=== PATIENT | female | born 1960 | race Caucasian/White ===

== ENCOUNTER 2025-05-25 17:32 | Inpatient (IN) ==
[2025-05-25] MEDS: SODIUM CHLORIDE 0.9% 500 ML IV SCH (17:51)
--- NOTE | 2025-05-25 17:51 | Emergency Department Note ---
Impression & Plan Closed head injury, Fall, Contusion of face, Contusion of foot, left, Metabolic acidosis ED Provider Note NAME: BEAU SALINAS AGE: 65 SEX: F : 1960 ARRIVES VIA: Ambulance INFORMANT: Patient, ED PROVIDER(S): Darrius Anne DO CHIEF COMPLAINT: Fall HPI: The patient is a 65-year-old female who presented to the emergency department after a fall. She had a fall yesterday evening. She states that she was going upstairs but she is very vague about the incident. She denies having any loss of conscious. The patient denies having any fever. She does complain of headache and neck pain. She also cannot put weight on her left leg. She states that a friend came over to check on her and that is why she called 911. The patient denies any recent alcohol abuse. She denies having any chest pain or difficulty breathing. The patient was not made a trauma activation as she does not take blood thinners. ROS: See above HPI for pertinent positives & negatives. A total of 10 systems reviewed and were otherwise negative. PAST MEDICAL HISTORY: See Below PAST SURGICAL HISTORY: See Below FAMILY HISTORY: See Below SOCIAL HISTORY: See Below HOME MEDICATIONS: See Below ALLERGIES: See Below VITALS: See Below PHYSICAL EXAMINATION: Primary Survey Airway: Intact Breathing: Normal, breath sounds equal bilaterally Circulation: Skin warm, distal pulses 2+, capillary refill less than 2 seconds Disability Pupils: Equal and reactive to light, 2mm, brisk GCS: 15, Motor Function: Moves all extremities. Sensory: No deficits Secondary Survey GEN: The patient is awake and alert. She does appear uncomfortable. HEAD: Tenderness was noted over the occipital scalp. There is no swelling or laceration noted. EYES: Pupils round reactive to light, conjunctiva clear, extraocular movements intact, periorbital ecchymosis was noted around the left eye. There is a small laceration lateral to the left eye. No active bleeding was noted. ENT: Dentition was intact. NECK: No JVD, midline trachea, upper cervical spine tenderness was noted to palpation. s, C-collar in place HEART: Regular rate and rhythm LUNGS: Clear to auscultation bilaterally. CHEST: Chest wall non-tender, no bruising/deformity ABD: there is no tenderness guarding or rigidity elicited. BACK: No step offs or deformities, T-L spine non tender EXT: Skin is warm and dry. There is no significant pedal edema. Ecchymosis was noted over the left foot. There is tenderness over the dorsum of the left foot. Ecchymosis was noted over the right leg as well but there is no tenderness. NEURO: The patient is awake alert and orient x 3. Strength is symmetric. MEDICAL DECISION MAKING: The patient is a 65-year-old female who presented to the emergency department for an evaluation after a fall. The patient fell last evening. She was found by a friend and seemed to be struggling so she came by ambulance. The patient had obvious trauma to the left side of her face. She also had swelling to her left foot. Given the patient's comorbidities I do not feel that she would be a good candidate for outpatient management. There was no obvious traumatic findings on her workup although I am suspicious her left foot could have an occult injury that is not noted on x-ray. She was also found to have metabolic acidosis. Further testing was ordered but I discussed her condition with the on-call [facility] hospitalist. They have agreed to evaluate the patient in the emergency department for further management and disposition. Triage Nursing notes reviewed. Prior medical records reviewed Vital Signs: reviewed and remarkable for elevated blood pressure. Differential diagnosis: Fracture, dislocation, contusion, intra-abdominal, pneumothorax, intrathoracic, intracranial, neurologic, compartment syndrome, rhabdomyolysis, as well as other pathologies. ER treatment provided: See below Diagnostics interpreted by me: ECG: EKG was obtained in the emergency department. My interpretation is normal sinus rhythm at 81 bpm. There is no ectopy. Nonspecific ST abnormalities were appreciated. This was compared to a tracing from November 10, 2020. No changes were noted. Cardiac Monitoring: An order was placed for continuous cardiac monitoring. The monitor shows a rate of 83 bpm with sinus rhythm. Laboratory studies: As stated above and show below. Imaging studies: See below. Radiographic imaging was reviewed by myself Consultation(s): I discussed this case with Dr. Khan [facility] Past Med/Surg History Problem List (Updated 05/25/25 @ 19:40 by Darrius Anne DO) Metabolic acidosis (Acute) Contusion of foot, left (Acute) Contusion of face (Acute) Fall (Acute) Closed head injury (Acute) Social History Smoking Status: Never smoker Preferred Language: Guatemalan Feels Safe at Home: Yes Allergies Allergies Allergy/AdvReac Type Severity Reaction Status Date / Time Penicillins Allergy childhood Unverified 05/25/25 18:59 allergy Home Meds Home Medications Medication Instructions Recorded Confirmed amlodipine 2.5 mg tablet 5 mg PO QAM 05/25/25 05/25/25 cyanocobalamin (vitamin B-12) 1,000 mcg IM MONTHLY 05/25/25 05/25/25 1,000 mcg/mL injection solution folic acid 1 mg tablet 1 mg PO DAILY 05/25/25 05/25/25 losartan 100 mg tablet 100 mg PO QAM 05/25/25 05/25/25 rosuvastatin 5 mg tablet 5 mg PO QAM 05/25/25 05/25/25 sertraline 50 mg tablet 75 mg PO DAILY 05/25/25 05/25/25 Results & Data (ED) Vital Signs Vital Signs - 24 hr 05/25/25 17:45 05/25/25 17:47 05/25/25 17:50 Temperature 36.8 C Temperature Source Oral Pulse Rate 82 83 Respiratory Rate 19 Blood Pressure 176/113 H Blood Pressure Mean 134 Pulse Oximetry 100 100 Oxygen Delivery Method Room Air Room Air Sepsis Recent Fever Within 48 Hours No Sepsis New/Unexplained Change in Mental Status N/A Sepsis Action Taken by Nursing No Action Required Home Medications Current Medication List: was personally reviewed by me Laboratory Data Attestation: I reviewed the patient's lab results. 05/25/25 17:42 05/25/25 17:42 Lab Results 05/25/25 Range/Units 17:42 WBC 6.05 (4.8-10.8) K/ul RBC 3.60 L (4.20-5.40) M/uL Hgb 12.1 (12.0-16.0) g/dL Hct 33.0 L (37.0-47.0) % MCV 91.7 (80.0-100.0) fL MCH 33.6 (25.0-34.0) pg MCHC 36.7 H (32.0-36.0) g/dL RDW Std Deviation 42.6 (36.4-46.3) fL RDW Coeff of Esau 12.8 (11.5-14.5) % Plt Count 253 (130-400) K/uL MPV 9.8 (9.4-12.4) fL Immature Gran % (Auto) 0.5 % Neut % (Auto) 66.8 % Lymph % (Auto) 19.7 % [place] % (Auto) 11.2 % Eos % (Auto) 1.0 % Baso % (Auto) 0.8 % Neut # (Auto) 4.04 (1.40-6.50) K/uL Lymph # (Auto) 1.19 L (1.20-3.40) K/uL [place] # (Auto) 0.68 H (0.11-0.59) K/uL Eos # (Auto) 0.06 (0.00-0.50) K/uL Baso # (Auto) 0.05 (0.00-0.20) K/uL Immature Gran # (Auto) 0.03 (0.01-0.20) K/uL PT 10.2 (9.0-12.0) Seconds INR 1.0 (0.9-1.1) APTT 25 (21-31) Seconds PTT Ratio 0.9 Sodium 134 L (136-145) mmol/L Potassium 3.8 (3.5-5.1) mmol/L Chloride 93 L (98-107) mmol/L Carbon Dioxide 17 L (21-32) mmol/L Anion Gap 24 H (3-11) BUN 9 (6-23) mg/dl Creatinine 0.68 (0.6-1.2) mg/dl Est Cr Clr Drug Dosing 85.4 ml/min eGFR 97.80 BUN/Creatinine Ratio 13.2 (10-20) Glucose 76 (70-99(Fasting)) mg/dl Calcium 9.4 (8.6-10.3) mg/dl Total Bilirubin 1.1 H (0.2-1.0) mg/dl AST 44 H (13-39) U/L ALT 32 (7-52) U/L Alkaline Phosphatase 72 (34-104) U/L Total Creatine Kinase 237 H (26-192) U/L Troponin I High Sens 5.8 (0-14) pg/ml Total Protein 7.9 (6.0-8.3) gm/dl Albumin 4.8 (3.4-5.0) gm/dl Globulin 3.1 (2.5-4.0) gm/dl Albumin/Globulin Ratio 1.5 (0.9-2) Lipase 14 (11-82) U/L Ethyl Alcohol mg/dL < 10.0 (<10.0) mg/dl Administered Medications Discontinued Medications Diphtheria/Pertussis/Tetanus Vacc (Diphther/Tetan/Pertus Vaccine (Tdap, Adol/Adult) 0.5ml) 0.5 ml IM .ONCE ONE Stop: 05/25/25 17:47 Last Admin: 05/25/25 19:10 Dose: 0.5 ml Documented By: adolfor Sodium Chloride (Nss) 500 mls @ 999 mls/hr IV .Q31M JESSY Stop: 05/25/25 18:30 Last Admin: 05/25/25 17:51 Dose: 999 mls/hr Documented By: ALYSE Cefazolin Sodium (Ancef 1000mg) 1,000 mg in 7.5 mls @ 2.5 mls/min IV NOW STA Stop: 05/25/25 17:48 Last Admin: 05/25/25 19:09 Dose: 2.5 mls/min Documented By: adolfor Morphine Sulfate (Morphine Sulfate 4 Mg/Ml 1 Ml Carp\Vial) 4 mg IV NOW STA Stop: 05/25/25 17:47 Last Admin: 05/25/25 17:57 Dose: 4 mg Documented By: TEMITOPE Ondansetron HCl (Ondansetron Inj 2 Mg/Ml 2 Ml Vial) 4 mg IV NOW STA Stop: 05/25/25 17:47 Last Admin: 05/25/25 17:56 Dose: 4 mg Documented By: TEMITOPE Imaging Data Attestation: I personally reviewed and interpreted this imaging study as follows: My Impression: 1 view chest x-ray was obtained in the emergency department. My interpretation is no free air or definite infiltrate, final report below. Radiologist's Impression: Chest X-Ray 05/25/25 17:46 EXAM: X-ray chest one-view portable CLINICAL HISTORY: Fall PRIORS: 11/10/2020 TECHNIQUE: Frontal view chest FINDINGS: The chest is well-expanded. No airspace consolidation, effusion or congestive changes. Heart size is normal. No pneumothorax. Trachea is patent. Osseous structures demonstrate no acute abnormality. No radiopaque foreign body. IMPRESSION: No plain film evidence of an acute cardiopulmonary process. Electronically signed by Lorrie Tolbert 05-25-2025 6:45 PM Foot X-Ray 05/25/25 17:46 EXAMINATION: X-ray foot left minimum 3 view routine CLINICAL HISTORY: Fall PRIORS: None TECHNIQUE: 3 views left foot FINDINGS: Osseous demineralization noted. Alignment maintained. A moderate to large degree of soft tissue swelling surrounding the middle tarsals on the lateral view. No displaced fracture or dislocation. Advanced degenerative change of the great toe, MTP joint with medially situated osteophytes. No ankle joint effusion. Calcaneus is normal. PRESSION: Moderate soft tissue swelling of the foot with degenerative change of the great toe and no plain film evidence of an acute osseous abnormality. Follow-up radiograph of the foot could be considered if no radiographic occult fracture is of clinical concern, given the degree of soft tissue swelling. ACT 112: Positive. There are findings on this examination that require communication between the performing entity and the patient following Patient Test Result Information Act ([place] ACT 112) guidelines. Electronically signed by Lorrie Tolbert 05-25-2025 7:17 PM Tibia/Fibula X-Ray 05/25/25 17:46 EXAMINATION: X-ray tibia-fibula left 2 view CLINICAL HISTORY: Fall PRIORS: None TECHNIQUE: 2 view FINDINGS: Mild osseous demineralization noted. No acute displaced fracture or dislocation. No soft tissue swelling. No radiopaque foreign body. IMPRESSION: No plain film evidence of an acute osseous abnormality. Electronically signed by Lorrie Tolbert 05-25-2025 7:14 PM Abdomen/Pelvis CT 05/25/25 17:47 EXAMINATION: Abdomen and pelvis CT with CLINICAL HISTORY: Fell last night down 2 steps PRIORS: None TECHNIQUE: Contiguous axial images were obtained through the abdomen and pelvis with the use of intravenous contrast. Sagittal and coronal reformations are supplied. FINDINGS: Lung bases unremarkable. Fatty infiltration of the liver noted. Small round low-attenuation lesions in the liver likely representing cyst. No solid organ laceration or pericapsular hematoma. Gallbladder mildly distended. The portal vein, pancreas, spleen, under distended stomach, adrenals, aorta and IVC are morphologically unremarkable. Kidneys enhance symmetrically. No bowel wall hematoma or hemoperitoneum. Small bilateral inguinal hernias noted with fat as contents. Urinary bladder distends normally. No free fluid in the abdomen or pelvis. No dilated loops of bowel. Partially calcified atrophic uterus, likely fibroid. Moderate amount of formed stool in the colon. No pericolonic inflammatory change. Moderate osseous demineralization noted. Straightening of the lumbar spine noted. No high-grade compression fracture of the lumbar vertebral bodies. No acute displaced fracture or dislocation. IMPRESSION: 1. No CT evidence of an acute or traumatic abnormality. 2. Straightening of the lumbar spine may suggest muscle spasm. 3. Fatty infiltration of the liver Electronically signed by Lorrie Tolbert 05-25-2025 7:[address] 05/25/25 17:47 EXAM: CT cervical spine CLINICAL HISTORY: Fall last night, fell down 2 steps, neck pain left eye pain head pain TECHNIQUE: Contiguous axial images were obtained through the cervical spine without the use of intravenous contrast. Sagittal and coronal reformations are supplied. PRIORS: 02/24/2025 FINDINGS: Mild osseous demineralization noted. Lordotic straightening is noted. No acute cervical spine fracture or facet dislocation. Moderate to advanced degenerative change at C3-C4 through C7-T1 with near-total loss of intervertebral disc height, anterior bridging osteophytes and moderate uncovertebral hypertrophic changes, unchanged. No facet dislocation. Mild to moderate diffuse degenerative change throughout the facet joints. No prevertebral soft tissue swelling. Visualized trachea is patent. IMPRESSION: Lordotic straightening with advanced degenerative change throughout the lumbar spine and no acute fracture or dislocation. Electronically signed by Lorrie Tolbert 05-25-2025 7:[address] 05/25/25 17:47 EXAMINATION: Chest CT with CLINICAL HISTORY: Fall down 2 steps COMPARISON: Chest radiograph today TECHNIQUE: Contiguous axial images were obtained through the chest with the use of intravenous contrast. Sagittal and coronal reformations are supplied. FINDINGS: Chest is well-expanded. No pneumothorax, pulmonary contusion or pleural effusion. No bronchiectasis or mucous plugging. Trachea and mainstem bronchi are patent. Thyroid size is normal. Trachea and mainstem bronchi patent. Heart size within normal limits. No pericardial effusion. No adenopathy in the chest. Mild atherosclerotic disease of the coronary arteries. Fatty infiltration of the liver noted. Low-attenuation lesions in the liver may represent cysts. Mild osseous demineralization. No rib fracture IMPRESSION: No CT evidence of an acute or traumatic abnormality in the chest. Electronically signed by Lorrie Tolbert 05-25-2025 7:[address] 05/25/25 17:47 EXAMINATION: CT sinus without. PROCEDURE: Contiguous axial images were obtained through the paranasal sinuses without the use of intravenous contrast in bone windows. Sagittal and coronal reformations are supplied. COMPARISON: None INDICATION: Fall down 2 steps left eye pain FINDINGS: Mild osseous demineralization noted. No displaced fracture or dislocation. Postsurgical change of the sinuses with moderate mucosal moderate mucosal thickening of the maxillary sinuses noted. Remainder of paranasal sinuses and mastoid air cells well-pneumatized. The globes are bilaterally symmetric chronic appearing lucencies in the styloid processes. Postsurgical change of the nasal turbinates. Chronic appearing nasal bone fracture/lucency noted, image 40, series 901. No soft tissue swelling. Mild left periorbital inflammatory change. IMPRESSION: 1. Mild left periorbital soft tissue swelling representing trauma 2. Thickening of the maxillary sinuses compatible with chronic sinusitis. Electronically signed by Lorrie Tolbert 05-25-2025 7:[address] 05/25/25 17:47 EXAMINATION: Head CT without CLINICAL HISTORY: Fall last night fell 2 steps PRIORS: 02/24/2025 TECHNIQUE: Contiguous axial images were obtained through the head without the use of intravenous contrast. Sagittal and coronal reformations are supplied. FINDINGS: Appropriate parenchymal volume is noted. Scattered heterogeneous opacity present in the deep white matter likely representing small vessel occlusive disease. Jalloh-white differentiation is preserved. No edema or midline shift. No intra-axial or extra-axial hemorrhage. Ventricles are normal in size and configuration. Brainstem and cerebellum have a normal appearance. Calvarium unremarkable. Paranasal sinuses and mastoid air cells are well-pneumatized. Globes are intact. No retrobulbar abnormality. IMPRESSION: No CT evidence of an acute intracranial abnormality. If clinically appropriate, brain MRI could be obtained as appropriate. Electronically signed by Lorrie Tolbert 05-25-2025 7:21 PM Discharge Plan Visit Data Chief Complaint: Fall Stated Complaint: Fall yesterday, NOT on thinners ED Provider: Darrius Anne Discharge Problem: Closed head injury, Fall, Contusion of face, Contusion of foot, left, Metabolic acidosis Patient Disposition: Being Evaluated by Hospitalist Condition: Fair Forms Stand Alone Forms: My [facility] Prescriptions Prescriptions: No Action amlodipine 2.5 mg tablet 5 mg PO QAM cyanocobalamin (vitamin B-12) 1,000 mcg/mL solution 1,000 mcg IM MONTHLY folic acid 1 mg tablet 1 mg PO DAILY losartan 100 mg tablet 100 mg PO QAM sertraline 50 mg tablet 75 mg PO DAILY rosuvastatin 5 mg tablet 5 mg PO QAM Referrals Referrals: Nhi Paz MD [Primary Care Provider] -
[2025-05-25] MEDS: ONDANSETRON INJ 2 MG/ML 2 ML VIAL IV STA (17:56)
[2025-05-25] MEDS: MoRPHine SULFATE 4 MG/ML 1 ML CARP\\VIAL IV STA (17:57)
[2025-05-25 18:04] LABS: Hematocrit (blood only) 33.0 % (37.0-47.0); Hemoglobin 12.1 g/dL (12.0-16.0); Immature Granulocytes # (auto) 0.03 K/uL (0.01-0.20); Immature Granulocytes % (auto) 0.5 %; Mean Corpuscular Hemoglobin 33.6 pg (25.0-34.0); Mean Corpuscular Volume 91.7 fL (80.0-100.0); Platelet Count 253 K/uL (130-400); RDW Standard Deviation 42.6 fL (36.4-46.3); Red Blood Count 3.60 M/uL (4.20-5.40); White Blood Count 6.05 K/ul (4.8-10.8)
[2025-05-25 18:22] LABS: Alanine Aminotransferase 32.0 U/L (7-52); Albumin Globulin Ratio 1.5 (0.9-2); Albumin Level 4.8 gm/dl (3.4-5.0); Alkaline Phosphatase 72.0 U/L (34-104); Anion Gap 24.0 (3-11); Bilirubin,Total 1.1 mg/dl (0.2-1.0); Blood Urea Nitrogen 9.0 mg/dl (6-23); Calcium 9.4 mg/dl (8.6-10.3); Carbon Dioxide 17.0 mmol/L (21-32); Chloride 93.0 mmol/L (98-107); Creatine Kinase 237.0 U/L (26-192); Creatinine Clr Calc Pharmacy 85.4 ml/min; Globulin 3.1 gm/dl (2.5-4.0); Glucose 76.0 mg/dl (70-99(Fasting)); Lipase 14.0 U/L (11-82); Potassium 3.8 mmol/L (3.5-5.1); Sodium 134.0 mmol/L (136-145); Total Protein 7.9 gm/dl (6.0-8.3)
[2025-05-25 18:41] LABS: INR 1.0 (0.9-1.1); Partial Thromboplastin Time 25 Seconds (21-31); Prothrombin Time 10.2 Seconds (9.0-12.0)
--- NOTE | 2025-05-25 18:49 | XRay Report ---
EXAM: X-ray chest one-view portable CLINICAL HISTORY: Fall PRIORS: 11/10/2020 TECHNIQUE: Frontal view chest FINDINGS: The chest is well-expanded. No airspace consolidation, effusion or congestive changes. Heart size is normal. No pneumothorax. Trachea is patent. Osseous structures demonstrate no acute abnormality. No radiopaque foreign body. IMPRESSION: No plain film evidence of an acute cardiopulmonary process. Electronically signed by Lorrie Tolbert 05-25-2025 6:45 PM
[2025-05-25] MEDS: DIPHTHER/TETAN/PERTUS Vaccine (Tdap, Adol/Adult) 0.5mL IM ONE (19:10)
--- NOTE | 2025-05-25 19:19 | XRay Report ---
EXAMINATION: X-ray tibia-fibula left 2 view CLINICAL HISTORY: Fall PRIORS: None TECHNIQUE: 2 view FINDINGS: Mild osseous demineralization noted. No acute displaced fracture or dislocation. No soft tissue swelling. No radiopaque foreign body. IMPRESSION: No plain film evidence of an acute osseous abnormality. Electronically signed by Lorrie Tolbert 05-25-2025 7:14 PM
--- NOTE | 2025-05-25 19:19 | XRay Report ---
EXAMINATION: X-ray foot left minimum 3 view routine CLINICAL HISTORY: Fall PRIORS: None TECHNIQUE: 3 views left foot FINDINGS: Osseous demineralization noted. Alignment maintained. A moderate to large degree of soft tissue swelling surrounding the middle tarsals on the lateral view. No displaced fracture or dislocation. Advanced degenerative change of the great toe, MTP joint with medially situated osteophytes. No ankle joint effusion. Calcaneus is normal. PRESSION: Moderate soft tissue swelling of the foot with degenerative change of the great toe and no plain film evidence of an acute osseous abnormality. Follow-up radiograph of the foot could be considered if no radiographic occult fracture is of clinical concern, given the degree of soft tissue swelling. ACT 112: Positive. There are findings on this examination that require communication between the performing entity and the patient following Patient Test Result Information Act ([place] ACT 112) guidelines. Electronically signed by Lorrie Tolbert 05-25-2025 7:17 PM
--- NOTE | 2025-05-25 19:20 | CT Scan Report ---
EXAM: CT cervical spine CLINICAL HISTORY: Fall last night, fell down 2 steps, neck pain left eye pain head pain TECHNIQUE: Contiguous axial images were obtained through the cervical spine without the use of intravenous contrast. Sagittal and coronal reformations are supplied. PRIORS: 02/24/2025 FINDINGS: Mild osseous demineralization noted. Lordotic straightening is noted. No acute cervical spine fracture or facet dislocation. Moderate to advanced degenerative change at C3-C4 through C7-T1 with near-total loss of intervertebral disc height, anterior bridging osteophytes and moderate uncovertebral hypertrophic changes, unchanged. No facet dislocation. Mild to moderate diffuse degenerative change throughout the facet joints. No prevertebral soft tissue swelling. Visualized trachea is patent. IMPRESSION: Lordotic straightening with advanced degenerative change throughout the lumbar spine and no acute fracture or dislocation. Electronically signed by Lorrie Tolbert 05-25-2025 7:19 PM
--- NOTE | 2025-05-25 19:22 | CT Scan Report ---
EXAMINATION: Head CT without CLINICAL HISTORY: Fall last night fell 2 steps PRIORS: 02/24/2025 TECHNIQUE: Contiguous axial images were obtained through the head without the use of intravenous contrast. Sagittal and coronal reformations are supplied. FINDINGS: Appropriate parenchymal volume is noted. Scattered heterogeneous opacity present in the deep white matter likely representing small vessel occlusive disease. Jalloh-white differentiation is preserved. No edema or midline shift. No intra-axial or extra-axial hemorrhage. Ventricles are normal in size and configuration. Brainstem and cerebellum have a normal appearance. Calvarium unremarkable. Paranasal sinuses and mastoid air cells are well-pneumatized. Globes are intact. No retrobulbar abnormality. IMPRESSION: No CT evidence of an acute intracranial abnormality. If clinically appropriate, brain MRI could be obtained as appropriate. Electronically signed by Lorrie Tolbert 05-25-2025 7:21 PM
--- NOTE | 2025-05-25 19:25 | CT Scan Report ---
EXAMINATION: Chest CT with CLINICAL HISTORY: Fall down 2 steps COMPARISON: Chest radiograph today TECHNIQUE: Contiguous axial images were obtained through the chest with the use of intravenous contrast. Sagittal and coronal reformations are supplied. FINDINGS: Chest is well-expanded. No pneumothorax, pulmonary contusion or pleural effusion. No bronchiectasis or mucous plugging. Trachea and mainstem bronchi are patent. Thyroid size is normal. Trachea and mainstem bronchi patent. Heart size within normal limits. No pericardial effusion. No adenopathy in the chest. Mild atherosclerotic disease of the coronary arteries. Fatty infiltration of the liver noted. Low-attenuation lesions in the liver may represent cysts. Mild osseous demineralization. No rib fracture IMPRESSION: No CT evidence of an acute or traumatic abnormality in the chest. Electronically signed by Lorrie Tolbert 05-25-2025 7:24 PM
--- NOTE | 2025-05-25 19:29 | CT Scan Report ---
EXAMINATION: CT sinus without. PROCEDURE: Contiguous axial images were obtained through the paranasal sinuses without the use of intravenous contrast in bone windows. Sagittal and coronal reformations are supplied. COMPARISON: None INDICATION: Fall down 2 steps left eye pain FINDINGS: Mild osseous demineralization noted. No displaced fracture or dislocation. Postsurgical change of the sinuses with moderate mucosal moderate mucosal thickening of the maxillary sinuses noted. Remainder of paranasal sinuses and mastoid air cells well-pneumatized. The globes are bilaterally symmetric chronic appearing lucencies in the styloid processes. Postsurgical change of the nasal turbinates. Chronic appearing nasal bone fracture/lucency noted, image 40, series 901. No soft tissue swelling. Mild left periorbital inflammatory change. IMPRESSION: 1. Mild left periorbital soft tissue swelling representing trauma 2. Thickening of the maxillary sinuses compatible with chronic sinusitis. Electronically signed by Lorrie Tolbert 05-25-2025 7:28 PM
--- NOTE | 2025-05-25 19:32 | CT Scan Report ---
EXAMINATION: Abdomen and pelvis CT with CLINICAL HISTORY: Fell last night down 2 steps PRIORS: None TECHNIQUE: Contiguous axial images were obtained through the abdomen and pelvis with the use of intravenous contrast. Sagittal and coronal reformations are supplied. FINDINGS: Lung bases unremarkable. Fatty infiltration of the liver noted. Small round low-attenuation lesions in the liver likely representing cyst. No solid organ laceration or pericapsular hematoma. Gallbladder mildly distended. The portal vein, pancreas, spleen, under distended stomach, adrenals, aorta and IVC are morphologically unremarkable. Kidneys enhance symmetrically. No bowel wall hematoma or hemoperitoneum. Small bilateral inguinal hernias noted with fat as contents. Urinary bladder distends normally. No free fluid in the abdomen or pelvis. No dilated loops of bowel. Partially calcified atrophic uterus, likely fibroid. Moderate amount of formed stool in the colon. No pericolonic inflammatory change. Moderate osseous demineralization noted. Straightening of the lumbar spine noted. No high-grade compression fracture of the lumbar vertebral bodies. No acute displaced fracture or dislocation. IMPRESSION: 1. No CT evidence of an acute or traumatic abnormality. 2. Straightening of the lumbar spine may suggest muscle spasm. 3. Fatty infiltration of the liver Electronically signed by Lorrie Tolbert 05-25-2025 7:32 PM
[2025-05-25] MEDS: LACTATED RINGER'S 1,000 ML IV ONE (20:06)
[2025-05-25] MEDS: HYDROmorphone INJ 0.5 MG/0.5 ML SYR IV PRN (20:06)
[2025-05-25 20:33] LABS: Appearance Urine Clear (Clear); Glucose Urine UA Negative (Negative)
--- NOTE | 2025-05-25 20:41 | History & Physical Report ---
Date of Service May 25, 2025 Assessment & Plan (1) Cerebral concussion: Plan: Assessment and plan below following discussion of case with ED provider and reviewing patient history/pertinent normal/abnormal diagnostic test results. Cerebral concussion Prior history of concussion injury when patient was residing in [place] Ambulatory dysfunction hypertension, elevated secondary discomfort and missed home medications. pineal gland cyst as per records, not present on follow-up brain MRI from 2010 ADHD, stable off maintenance medications Traumatic left foot swelling, rule out occult fractures given excruciating pain despite negative plain x-ray OBS Admit to med/tele [facility] neurochecks Neurology consult Re: Cerebral concussion Facilitate home BP meds CT left foot PT OT eval prior to discharge DVT prophylaxis. SCDs Re: Recent head trauma Full code Text document was generated using [employer] voice recognition software. It may contain grammatical or spelling errors. Kindly contact undersigned for clarification of any documentation item in question. History of Present Illness Chief Complaint: Fall, LOC Primary Care Provider: Nhi Paz MD History obtained from patient and records. Medical history significant for hypertension, postconcussion syndrome, pineal gland cyst as per records, ADHD, mood disorder. Last ER visit February, for a fall in the setting of alcohol intoxication resulting in left hand bruising. Patient discharged home. Outpatient x-rays eventually showed phalangeal fractures of the left hand. No operative management as per [facility]. Patient missed a step while going up a flight of stairs at her home today. Balance has been off since having COVID few years back as per patient. Last EtOH intake was weeks ago as per patient. Subsequent head trauma resulting in LOC. Patient thinks he may have been just out for a few minutes. Patient woke up with left eye pain and extreme left foot pain. Vision on the left eye little blurry. Denies chest pain, SOB. Patient not able to take BP meds today. Patient brought to ER by EMS. SBP 170s upon arrival at the ER. Medical History as above Surgical History : Breast lesion excision, dental surgery, right wrist reconstructive surgery Family History : Breast cancer, colon cancer, lymphoma, blood clot Personal/Social history : Non-smoker, occasional EtOH intake, retired from [employer] work Allergies Allergy/AdvReac Type Severity Reaction Status Date / Time Penicillins Allergy childhood Unverified 05/25/25 18:59 allergy Home Medications Medication Instructions Recorded Confirmed Type amlodipine 2.5 mg tablet 5 mg PO QAM 05/25/25 05/25/25 History cyanocobalamin (vitamin B-12) 1,000 mcg IM MONTHLY 05/25/25 05/25/25 History 1,000 mcg/mL injection solution folic acid 1 mg tablet 1 mg PO DAILY 05/25/25 05/25/25 History losartan 100 mg tablet 100 mg PO QAM 05/25/25 05/25/25 History rosuvastatin 5 mg tablet 5 mg PO QAM 05/25/25 05/25/25 History sertraline 50 mg tablet 75 mg PO DAILY 05/25/25 05/25/25 History Past Med/Surg History Problem List (Updated 05/25/25 @ 23:40 by Jose J Khan MD) Cerebral concussion Metabolic acidosis (Acute) Contusion of foot, left (Acute) Contusion of face (Acute) Fall (Acute) Closed head injury (Acute) Social History Smoking Status: Never smoker Hx Alcohol Use: Yes Hx Substance Use: No Preferred Language: Romanian Communication Ability: Effective 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 Current Living Situation: Alone Current Living Situation Comment: alone with cats and rabbits Other Information That Helps Us Care for You: No Feels Safe at Home: Yes Safety Concerns: Feels Safe At This Time Assistive Devices: Glasses Review of Systems Review of Systems: As per HPI, all other systems reviewed and negative Physical Exam Physical Exam: GENERAL: Comfortable, slightly anxious, no respiratory distress SKIN: Normal color, warm HEENT: Left periorbital ecchymosis, no ptosis, dry buccal mucosa NECK : Supple, no tenderness CHEST : CTA, no tenderness HEART : RRR, no obvious murmurs ABDOMEN: Some distention, nontender EXTREMITIES : Tender left foot swelling, palpable pulses, no other conspicuous deformities noted NEUROLOGIC : Coherent, no EOM entrapment, no facial asymmetry, gait and stance not assessed Results & Data Results & Data Vital Signs (Past 12 Hours) Vital Signs Temp Pulse Pulse Resp BP BP Pulse Ox 05/25/25 20:14 72 15 148/91 H 95 05/25/25 17:50 83 05/25/25 17:47 100 05/25/25 17:45 36.8 C 82 19 176/113 H 100 O2 Del Method 05/25/25 20:14 Room Air 05/25/25 17:50 05/25/25 17:47 Room Air 05/25/25 17:45 Room Air Laboratory Results Laboratory Results WBC 6.05 K/ul (4.8-10.8) 05/25/25 17:42 RBC 3.60 M/uL (4.20-5.40) L 05/25/25 17:42 Hgb 12.1 g/dL (12.0-16.0) 05/25/25 17:42 Hct 33.0 % (37.0-47.0) L 05/25/25 17:42 MCV 91.7 fL (80.0-100.0) 05/25/25 17:42 MCH 33.6 pg (25.0-34.0) 05/25/25 17:42 MCHC 36.7 g/dL (32.0-36.0) H 05/25/25 17:42 RDW Std Deviation 42.6 fL (36.4-46.3) 05/25/25 17:42 RDW Coeff of Esau 12.8 % (11.5-14.5) 05/25/25 17:42 Plt Count 253 K/uL (130-400) 05/25/25 17:42 MPV 9.8 fL (9.4-12.4) 05/25/25 17:42 Immature Gran % (Auto) 0.5 % 05/25/25 17:42 Neut % (Auto) 66.8 % 05/25/25 17:42 Lymph % (Auto) 19.7 % 05/25/25 17:42 [place] % (Auto) 11.2 % 05/25/25 17:42 Eos % (Auto) 1.0 % 05/25/25 17:42 Baso % (Auto) 0.8 % 05/25/25 17:42 Neut # (Auto) 4.04 K/uL (1.40-6.50) 05/25/25 17:42 Lymph # (Auto) 1.19 K/uL (1.20-3.40) L 05/25/25 17:42 [place] # (Auto) 0.68 K/uL (0.11-0.59) H 05/25/25 17:42 Eos # (Auto) 0.06 K/uL (0.00-0.50) 05/25/25 17:42 Baso # (Auto) 0.05 K/uL (0.00-0.20) 05/25/25 17:42 Immature Gran # (Auto) 0.03 K/uL (0.01-0.20) 05/25/25 17:42 PT 10.2 Seconds (9.0-12.0) 05/25/25 17:42 INR 1.0 (0.9-1.1) 05/25/25 17:42 APTT 25 Seconds (21-31) 05/25/25 17:42 PTT Ratio 0.9 05/25/25 17:42 Sodium 134 mmol/L (136-145) L 05/25/25 17:42 Potassium 3.8 mmol/L (3.5-5.1) 05/25/25 17:42 Chloride 93 mmol/L (98-107) L 05/25/25 17:42 Carbon Dioxide 17 mmol/L (21-32) L 05/25/25 17:42 Anion Gap 24 (3-11) H 05/25/25 17:42 BUN 9 mg/dl (6-23) 05/25/25 17:42 Creatinine 0.68 mg/dl (0.6-1.2) 05/25/25 17:42 Est Cr Clr Drug Dosing 85.4 ml/min 05/25/25 17:42 eGFR 97.80 05/25/25 17:42 BUN/Creatinine Ratio 13.2 (10-20) 05/25/25 17:42 Glucose 76 mg/dl (70-99(Fasting)) 05/25/25 17:42 Calcium 9.4 mg/dl (8.6-10.3) 05/25/25 17:42 Total Bilirubin 1.1 mg/dl (0.2-1.0) H 05/25/25 17:42 AST 44 U/L (13-39) H 05/25/25 17:42 ALT 32 U/L (7-52) 05/25/25 17:42 Alkaline Phosphatase 72 U/L (34-104) 05/25/25 17:42 Total Creatine Kinase 237 U/L (26-192) H 05/25/25 17:42 Troponin I High Sens 5.8 pg/ml (0-14) 05/25/25 17:42 Total Protein 7.9 gm/dl (6.0-8.3) 05/25/25 17:42 Albumin 4.8 gm/dl (3.4-5.0) 05/25/25 17:42 Globulin 3.1 gm/dl (2.5-4.0) 05/25/25 17:42 Albumin/Globulin Ratio 1.5 (0.9-2) 05/25/25 17:42 Lipase 14 U/L (11-82) 05/25/25 17:42 Urine Color Yellow 05/25/25 20:15 Urine Appearance Clear (Clear) 05/25/25 20:15 Urine pH 6.0 (4.5-7.5) 05/25/25 20:15 Ur Specific [place] 1.026 (1.000-1.030) 05/25/25 20:15 Urine Protein Negative (Negative) 05/25/25 20:15 Urine Glucose (UA) Negative (Negative) 05/25/25 20:15 Urine Ketones 4+ (Negative) H 05/25/25 20:15 Urine Blood Negative (Negative) 05/25/25 20:15 Urine Nitrite Negative (Negative) 05/25/25 20:15 Urine Bilirubin Negative (Negative) 05/25/25 20:15 Urine Urobilinogen Negative (Negative) 05/25/25 20:15 Ur Leukocyte Esterase Negative (Negative) 05/25/25 20:15 Urine Comment 05/25/25 20:15 Ethyl Alcohol mg/dL < 10.0 mg/dl (<10.0) 05/25/25 17:42 Impressions Chest X-Ray 05/25/25 17:46 EXAM: X-ray chest one-view portable CLINICAL HISTORY: Fall PRIORS: 11/10/2020 TECHNIQUE: Frontal view chest FINDINGS: The chest is well-expanded. No airspace consolidation, effusion or congestive changes. Heart size is normal. No pneumothorax. Trachea is patent. Osseous structures demonstrate no acute abnormality. No radiopaque foreign body. IMPRESSION: No plain film evidence of an acute cardiopulmonary process. Electronically signed by Lorrie Tolbert 05-25-2025 6:45 PM Foot X-Ray 05/25/25 17:46 EXAMINATION: X-ray foot left minimum 3 view routine CLINICAL HISTORY: Fall PRIORS: None TECHNIQUE: 3 views left foot FINDINGS: Osseous demineralization noted. Alignment maintained. A moderate to large degree of soft tissue swelling surrounding the middle tarsals on the lateral view. No displaced fracture or dislocation. Advanced degenerative change of the great toe, MTP joint with medially situated osteophytes. No ankle joint effusion. Calcaneus is normal. PRESSION: Moderate soft tissue swelling of the foot with degenerative change of the great toe and no plain film evidence of an acute osseous abnormality. Follow-up radiograph of the foot could be considered if no radiographic occult fracture is of clinical concern, given the degree of soft tissue swelling. ACT 112: Positive. There are findings on this examination that require communication between the performing entity and the patient following Patient Test Result Information Act ([place] ACT 112) guidelines. Electronically signed by Lorrie Tolbert 05-25-2025 7:17 PM Tibia/Fibula X-Ray 05/25/25 17:46 EXAMINATION: X-ray tibia-fibula left 2 view CLINICAL HISTORY: Fall PRIORS: None TECHNIQUE: 2 view FINDINGS: Mild osseous demineralization noted. No acute displaced fracture or dislocation. No soft tissue swelling. No radiopaque foreign body. IMPRESSION: No plain film evidence of an acute osseous abnormality. Electronically signed by Lorrie Tolbert 05-25-2025 7:14 PM Abdomen/Pelvis CT 05/25/25 17:47 EXAMINATION: Abdomen and pelvis CT with CLINICAL HISTORY: Fell last night down 2 steps PRIORS: None TECHNIQUE: Contiguous axial images were obtained through the abdomen and pelvis with the use of intravenous contrast. Sagittal and coronal reformations are supplied. FINDINGS: Lung bases unremarkable. Fatty infiltration of the liver noted. Small round low-attenuation lesions in the liver likely representing cyst. No solid organ laceration or pericapsular hematoma. Gallbladder mildly distended. The portal vein, pancreas, spleen, under distended stomach, adrenals, aorta and IVC are morphologically unremarkable. Kidneys enhance symmetrically. No bowel wall hematoma or hemoperitoneum. Small bilateral inguinal hernias noted with fat as contents. Urinary bladder distends normally. No free fluid in the abdomen or pelvis. No dilated loops of bowel. Partially calcified atrophic uterus, likely fibroid. Moderate amount of formed stool in the colon. No pericolonic inflammatory change. Moderate osseous demineralization noted. Straightening of the lumbar spine noted. No high-grade compression fracture of the lumbar vertebral bodies. No acute displaced fracture or dislocation. IMPRESSION: 1. No CT evidence of an acute or traumatic abnormality. 2. Straightening of the lumbar spine may suggest muscle spasm. 3. Fatty infiltration of the liver Electronically signed by Lorrie Tolbert 05-25-2025 7:[address] 05/25/25 17:47 EXAM: CT cervical spine CLINICAL HISTORY: Fall last night, fell down 2 steps, neck pain left eye pain head pain TECHNIQUE: Contiguous axial images were obtained through the cervical spine without the use of intravenous contrast. Sagittal and coronal reformations are supplied. PRIORS: 02/24/2025 FINDINGS: Mild osseous demineralization noted. Lordotic straightening is noted. No acute cervical spine fracture or facet dislocation. Moderate to advanced degenerative change at C3-C4 through C7-T1 with near-total loss of intervertebral disc height, anterior bridging osteophytes and moderate uncovertebral hypertrophic changes, unchanged. No facet dislocation. Mild to moderate diffuse degenerative change throughout the facet joints. No prevertebral soft tissue swelling. Visualized trachea is patent. IMPRESSION: Lordotic straightening with advanced degenerative change throughout the lumbar spine and no acute fracture or dislocation. Electronically signed by Lorrie Tolbert 05-25-2025 7:[address] 05/25/25 17:47 EXAMINATION: Chest CT with CLINICAL HISTORY: Fall down 2 steps COMPARISON: Chest radiograph today TECHNIQUE: Contiguous axial images were obtained through the chest with the use of intravenous contrast. Sagittal and coronal reformations are supplied. FINDINGS: Chest is well-expanded. No pneumothorax, pulmonary contusion or pleural effusion. No bronchiectasis or mucous plugging. Trachea and mainstem bronchi are patent. Thyroid size is normal. Trachea and mainstem bronchi patent. Heart size within normal limits. No pericardial effusion. No adenopathy in the chest. Mild atherosclerotic disease of the coronary arteries. Fatty infiltration of the liver noted. Low-attenuation lesions in the liver may represent cysts. Mild osseous demineralization. No rib fracture IMPRESSION: No CT evidence of an acute or traumatic abnormality in the chest. Electronically signed by Lorrie Tolbert 05-25-2025 7:[address] 05/25/25 17:47 EXAMINATION: CT sinus without. PROCEDURE: Contiguous axial images were obtained through the paranasal sinuses without the use of intravenous contrast in bone windows. Sagittal and coronal reformations are supplied. COMPARISON: None INDICATION: Fall down 2 steps left eye pain FINDINGS: Mild osseous demineralization noted. No displaced fracture or dislocation. Postsurgical change of the sinuses with moderate mucosal moderate mucosal thickening of the maxillary sinuses noted. Remainder of paranasal sinuses and mastoid air cells well-pneumatized. The globes are bilaterally symmetric chronic appearing lucencies in the styloid processes. Postsurgical change of the nasal turbinates. Chronic appearing nasal bone fracture/lucency noted, image 40, series 901. No soft tissue swelling. Mild left periorbital inflammatory change. IMPRESSION: 1. Mild left periorbital soft tissue swelling representing trauma 2. Thickening of the maxillary sinuses compatible with chronic sinusitis. Electronically signed by Lorrie Tolbert 05-25-2025 7:[address] 05/25/25 17:47 EXAMINATION: Head CT without CLINICAL HISTORY: Fall last night fell 2 steps PRIORS: 02/24/2025 TECHNIQUE: Contiguous axial images were obtained through the head without the use of intravenous contrast. Sagittal and coronal reformations are supplied. FINDINGS: Appropriate parenchymal volume is noted. Scattered heterogeneous opacity present in the deep white matter likely representing small vessel occlusive disease. Jalloh-white differentiation is preserved. No edema or midline shift. No intra-axial or extra-axial hemorrhage. Ventricles are normal in size and configuration. Brainstem and cerebellum have a normal appearance. Calvarium unremarkable. Paranasal sinuses and mastoid air cells are well-pneumatized. Globes are intact. No retrobulbar abnormality. IMPRESSION: No CT evidence of an acute intracranial abnormality. If clinically appropriate, brain MRI could be obtained as appropriate. Electronically signed by Lorrie Tolbert 05-25-2025 7:21 PM Diagnostic Findings EKG as per my interpretation :Rate 80, NSR, normal axis, T wave abnormalities septal leads
[2025-05-25] MEDS ORDERED: LORazepam 0.5 MG TAB PO PRN (20:44)
[2025-05-25 21:25] LABS: Base Excess VBG -4.9 mEq/L; HCO3 VBG 20 mmol/L; Oxygen Saturation VBG 79.4 %; PCO2 VBG 35 mmHg (38-50); PO2 VBG 49 mmHg; pH VBG 7.36 (7.36-7.41)
[2025-05-25] MEDS: SODIUM CHLORIDE 0.9% 1,000 ML IV ONE (21:31)
[2025-05-25] MEDS: KETOROLAC TROMETHAMINE 15 MG/ML VIAL IV ONE (21:33)
[2025-05-25 21:51] LABS: Amphetamines+Metham, Urine Neg (Neg); MDMA (Ecstacy), Urine Neg (Neg); Marijuana, Urine Neg (Neg)
[2025-05-25] MEDS: LOSARTAN POTASSIUM 50 MG TAB PO SCH (22:44)
[2025-05-25] MEDS: LOSARTAN POTASSIUM 50 MG TAB PO STA (22:45)
[2025-05-25] MEDS ORDERED: HEPARIN 25000 UNIT/500 ML D5W 25,000 UNITS/500 ML BAG IV SCH (23:45)
[2025-05-26] MEDS: Heparin IV Adult Wt-Based Standard *NO* INITIAL Bolus Protocol IV STA (00:05)
[2025-05-26] MEDS: WARFARIN SOD 5 MG TAB PO ONE (00:05)
--- NOTE | 2025-05-26 00:54 | CT Scan Report ---
Exam(s): CT LEFT FOOT Without Contrast EXAM: CT Left Lower Extremity Without Intravenous Contrast, Foot CLINICAL HISTORY: Reason for exam: pain. TECHNIQUE: Axial computed tomography images of the left foot without intravenous contrast. CTDI is 24.91 mGy and DLP is 638.21 mGy-cm. Automated exposure control was utilized for the study. A dose lowering technique was utilized adhering to the principles of ALARA. COMPARISON: No relevant prior studies available. FINDINGS: Bones/joints: Unremarkable. No acute fracture. No dislocation. Soft tissues: Subtle soft tissue swelling about the dorsum of the foot. No radiopaque foreign body. IMPRESSION: Normal left foot CT. Subtle soft tissue swelling about the dorsum of the foot may representing mild cellulitis. Electronically signed by: Jim Decker MD 05/26/25 00:54 AM
[2025-05-26] MEDS: PROMETHAZINE 6.25 MG/50.25 ML BAG IV PRN (01:48)
[2025-05-26 07:22] LABS: Hematocrit (blood only) 27.0 % (37.0-47.0); Hemoglobin 9.7 g/dL (12.0-16.0); Immature Granulocytes # (auto) 0.01 K/uL (0.01-0.20); Immature Granulocytes % (auto) 0.2 %; Mean Corpuscular Hemoglobin 33.9 pg (25.0-34.0); Mean Corpuscular Volume 94.4 fL (80.0-100.0); Platelet Count 191 K/uL (130-400); RDW Standard Deviation 45.4 fL (36.4-46.3); Red Blood Count 2.86 M/uL (4.20-5.40); White Blood Count 4.16 K/ul (4.8-10.8)
[2025-05-26 07:44] LABS: Alanine Aminotransferase 20.0 U/L (7-52); Albumin Globulin Ratio 1.5 (0.9-2); Albumin Level 3.8 gm/dl (3.4-5.0); Alkaline Phosphatase 57.0 U/L (34-104); Anion Gap 13.0 (3-11); Bilirubin,Total 0.8 mg/dl (0.2-1.0); Blood Urea Nitrogen 7.0 mg/dl (6-23); Calcium 8.3 mg/dl (8.6-10.3); Carbon Dioxide 25.0 mmol/L (21-32); Chloride 98.0 mmol/L (98-107); Creatine Kinase 172.0 U/L (26-192); Creatinine Clr Calc Pharmacy 80.7 ml/min; Globulin 2.6 gm/dl (2.5-4.0); Glucose 84.0 mg/dl (70-99(Fasting)); Potassium 3.7 mmol/L (3.5-5.1); Sodium 136.0 mmol/L (136-145); Total Protein 6.4 gm/dl (6.0-8.3)
[2025-05-26] MEDS: SERTRALINE HCL 50 MG TABLET PO SCH (08:34)
[2025-05-26] MEDS: FOLIC ACID 1 MG TAB PO SCH (08:35)
[2025-05-26] MEDS: ACETAMINOPHEN 325 MG TAB PO PRN (08:37)
[2025-05-26] MEDS: MoRPHine SULFATE 4 MG/ML 1 ML CARP\\VIAL IV PRN (09:55)
--- NOTE | 2025-05-26 13:38 | Neurology Consultation ---
Date of Consultation May 26, 2025 Assessment & Plan (1) Cerebral concussion: Concussion following closed head injury and loss of consciousness secondary to mechanical fall Recommend continued monitoring and work up to include the following: MRI brain with and without contrast when tolerated Continue to monitor mentation Limit sedative medications Provide brain rest/limit screen time Continue to monitor.control pain Continue frequent neurological assessments Obtain stat CT brain without contrast for any acute neurological decline Continue to monitor/control blood pressure & blood glucose Continue to monitor telemetry closely Consider ZioPatch at DC if no evidence of arrhythmia during inpatient monitoring Continue to monitor renal and hepatic function, keep euvolemic Continue current medications as previously prescribed Ok from neurology perspective for VTE prophylaxis PT/OT/SLT to eval and treat Plan for continued follow up with outpatient neurology 4-6 weeks Telehealth Consultation Telehealth Information Telehealth Information: I performed this visit using a real-time telehealth connection between my location and the patients originating location ([facility]). After connecting through interactive tele-video, patient was identified by name and date of and/or wristband check.Patient (or authorized healthcare business development representative) was informed that this was a telemedicine visit and it was being conducted confidentially over secure lines. My office door was closed and no one else was present in the room with me.Patient (or authorized healthcare business development representative) provided consent to proceed with the visit, expressed an understanding of privacy and security of the telemedicine visit, and gave permission to have a hospital business development representative in the room in order to assist with the visit and to conduct portions of the visit, as needed. I informed the patient (or authorized healthcare business development representative) that I reviewed their record and presented the opportunity for them to ask any questions regarding the visit today. The patient agreed to participate. History of Present Illness Reason for Consultation: Concussion Requesting Physician: Dr Alexis Attending Physician: Luigi Alexis MD History of Present Illness 65yo female with known hx of concussion reportedly fell while ambulating on steps arrived to ER underwent CT brain without contrast revealing no overt evidence of acute intracranial pathology. She has hx of HTN as well and arrived with elevated blood pressure. She reportedly fell while going up the stairs and reports may have lost consciousness after striking her head. She denies visual auditory olfactory gustatory or gastrointestinal sensation leading up to the event. I have low suspicion for seizure or syncope. Has hx of Pineal gland and reports some dizziness or feelings of being "off balance" at times since having COVID several years ago. I have performed televideo consultation. She is alert & oriented; able to answer all questions appropriately, name objects on televideo monitor, repeat phrases and perform complex/embedded commands without deficit. Neurological exam is non lateralizing/nonfocal in terms of motor strength and coordination. Appears in no apparent distress or discomfort at this time. however reports subtle headache and neck pain which is reportedly improving. She reports pain is controlled. She is agreeable to MRI brain. Allergies Allergy/AdvReac Type Severity Reaction Status Date / Time Penicillins Allergy childhood Unverified 05/25/25 18:59 allergy Home Medications Medication Instructions Recorded Confirmed Type amlodipine 2.5 mg tablet 5 mg PO QAM 05/25/25 05/25/25 History cyanocobalamin (vitamin B-12) 1,000 mcg IM MONTHLY 05/25/25 05/25/25 History 1,000 mcg/mL injection solution folic acid 1 mg tablet 1 mg PO DAILY 05/25/25 05/25/25 History losartan 100 mg tablet 100 mg PO QAM 05/25/25 05/25/25 History rosuvastatin 5 mg tablet 5 mg PO QAM 05/25/25 05/25/25 History sertraline 50 mg tablet 75 mg PO DAILY 05/25/25 05/25/25 History Patient History Social History Smoking Status: Never smoker Hx Alcohol Use: Yes Hx Substance Use: No Preferred Language: Yakut Communication Ability: Effective Signal Operator 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 Oriented to person, place, and time. Fluency naming repetition and comprehension appear grossly intact. Affect remains appropriate. CN testing: I: Deferred II: Reports no changes in visual acuity III/IV/: No evidence of gaze preference, hippus, nystagmus or roving eye movements V: Facial sensation reportedly grossly intact to light touch bilaterally VII: Facial movements appear without evidence of asymmetry VIII: Hearing appears grossly intact to loud voice bilaterally IX/X: Palate is unable to be accurately visualized XI: Shoulder shrug appears symmetric/ grossly intact bilaterally XII: Tongue protrudes midline without evidence of biting Motor exam: Strength appears grossly intact BUE LLE testing limited due to distal injury and reported pain Tone: Unable to accurately assess via telemedicine Sensory: Sensation is reportedly grossly intact throughout Coordination: No apparent evidence of dysmetria or dysdiadochokinesia Reflexes: Unable to accurately assess via telemedicine Gait: Deferred Results & Data Vital Signs (Past 12 Hours) Vital Signs Temp Pulse Pulse Pulse Resp BP Pulse Ox 05/26/25 11:17 36.7 C 81 18 147/85 H 95 05/26/25 08:07 36.9 C 80 20 131/80 97 05/26/25 08:00 05/26/25 07:40 75 05/26/25 03:07 36.8 C 75 18 129/77 93 O2 Del Method 05/26/25 11:17 Room Air 05/26/25 08:07 Room Air 05/26/25 08:00 Room Air 05/26/25 07:40 05/26/25 03:07 Room Air Laboratory Results Abnormal lab results 05/25/25 05/25/25 05/25/25 Range/Units 17:42 20:15 21:08 WBC (4.8-10.8) K/ul RBC 3.60 L (4.20-5.40) M/uL Hgb (12.0-16.0) g/dL Hct 33.0 L (37.0-47.0) % MCHC 36.7 H (32.0-36.0) g/dL Lymph # (Auto) 1.19 L (1.20-3.40) K/uL Morgan # (Auto) 0.68 H (0.11-0.59) K/uL VBG pCO2 35 L (38-50) mmHg Sodium 134 L (136-145) mmol/L Chloride 93 L (98-107) mmol/L Carbon Dioxide 17 L (21-32) mmol/L Anion Gap 24 H (3-11) BUN/Creatinine Ratio (10-20) Calcium (8.6-10.3) mg/dl Total Bilirubin 1.1 H (0.2-1.0) mg/dl AST 44 H (13-39) U/L Total Creatine Kinase 237 H (26-192) U/L Urine Ketones 4+ H (Negative) Urine Opiates Screen Pos H (Neg) 05/26/25 Range/Units 07:06 WBC 4.16 L (4.8-10.8) K/ul RBC 2.86 L (4.20-5.40) M/uL Hgb 9.7 L (12.0-16.0) g/dL Hct 27.0 L (37.0-47.0) % MCHC (32.0-36.0) g/dL Lymph # (Auto) (1.20-3.40) K/uL Morgan # (Auto) (0.11-0.59) K/uL VBG pCO2 (38-50) mmHg Sodium (136-145) mmol/L Chloride (98-107) mmol/L Carbon Dioxide (21-32) mmol/L Anion Gap 13 H (3-11) BUN/Creatinine Ratio 9.7 L (10-20) Calcium 8.3 L (8.6-10.3) mg/dl Total Bilirubin (0.2-1.0) mg/dl AST (13-39) U/L Total Creatine Kinase (26-192) U/L Urine Ketones (Negative) Urine Opiates Screen (Neg) Diagnostic Findings Chest X-Ray 05/25/25 17:46 EXAM: X-ray chest one-view portable CLINICAL HISTORY: Fall PRIORS: 11/10/2020 TECHNIQUE: Frontal view chest FINDINGS: The chest is well-expanded. No airspace consolidation, effusion or congestive changes. Heart size is normal. No pneumothorax. Trachea is patent. Osseous structures demonstrate no acute abnormality. No radiopaque foreign body. IMPRESSION: No plain film evidence of an acute cardiopulmonary process. Electronically signed by Lorrie Tolbert 05-25-2025 6:45 PM Foot X-Ray 05/25/25 17:46 EXAMINATION: X-ray foot left minimum 3 view routine CLINICAL HISTORY: Fall PRIORS: None TECHNIQUE: 3 views left foot FINDINGS: Osseous demineralization noted. Alignment maintained. A moderate to large degree of soft tissue swelling surrounding the middle tarsals on the lateral view. No displaced fracture or dislocation. Advanced degenerative change of the great toe, MTP joint with medially situated osteophytes. No ankle joint effusion. Calcaneus is normal. PRESSION: Moderate soft tissue swelling of the foot with degenerative change of the great toe and no plain film evidence of an acute osseous abnormality. Follow-up radiograph of the foot could be considered if no radiographic occult fracture is of clinical concern, given the degree of soft tissue swelling. ACT 112: Positive. There are findings on this examination that require communication between the performing entity and the patient following Patient Test Result Information Act ([place] ACT 112) guidelines. Electronically signed by Lorrie Tolbert 05-25-2025 7:17 PM Tibia/Fibula X-Ray 05/25/25 17:46 EXAMINATION: X-ray tibia-fibula left 2 view CLINICAL HISTORY: Fall PRIORS: None TECHNIQUE: 2 view FINDINGS: Mild osseous demineralization noted. No acute displaced fracture or dislocation. No soft tissue swelling. No radiopaque foreign body. IMPRESSION: No plain film evidence of an acute osseous abnormality. Electronically signed by Lorrie Tolbert 05-25-2025 7:14 PM Abdomen/Pelvis CT 05/25/25 17:47 EXAMINATION: Abdomen and pelvis CT with CLINICAL HISTORY: Fell last night down 2 steps PRIORS: None TECHNIQUE: Contiguous axial images were obtained through the abdomen and pelvis with the use of intravenous contrast. Sagittal and coronal reformations are supplied. FINDINGS: Lung bases unremarkable. Fatty infiltration of the liver noted. Small round low-attenuation lesions in the liver likely representing cyst. No solid organ laceration or pericapsular hematoma. Gallbladder mildly distended. The portal vein, pancreas, spleen, under distended stomach, adrenals, aorta and IVC are morphologically unremarkable. Kidneys enhance symmetrically. No bowel wall hematoma or hemoperitoneum. Small bilateral inguinal hernias noted with fat as contents. Urinary bladder distends normally. No free fluid in the abdomen or pelvis. No dilated loops of bowel. Partially calcified atrophic uterus, likely fibroid. Moderate amount of formed stool in the colon. No pericolonic inflammatory change. Moderate osseous demineralization noted. Straightening of the lumbar spine noted. No high-grade compression fracture of the lumbar vertebral bodies. No acute displaced fracture or dislocation. IMPRESSION: 1. No CT evidence of an acute or traumatic abnormality. 2. Straightening of the lumbar spine may suggest muscle spasm. 3. Fatty infiltration of the liver Electronically signed by Lorrie Tolbert 05-25-2025 7:[address] 05/25/25 17:47 EXAM: CT cervical spine CLINICAL HISTORY: Fall last night, fell down 2 steps, neck pain left eye pain head pain TECHNIQUE: Contiguous axial images were obtained through the cervical spine without the use of intravenous contrast. Sagittal and coronal reformations are supplied. PRIORS: 02/24/2025 FINDINGS: Mild osseous demineralization noted. Lordotic straightening is noted. No acute cervical spine fracture or facet dislocation. Moderate to advanced degenerative change at C3-C4 through C7-T1 with near-total loss of intervertebral disc height, anterior bridging osteophytes and moderate uncovertebral hypertrophic changes, unchanged. No facet dislocation. Mild to moderate diffuse degenerative change throughout the facet joints. No prevertebral soft tissue swelling. Visualized trachea is patent. IMPRESSION: Lordotic straightening with advanced degenerative change throughout the lumbar spine and no acute fracture or dislocation. Electronically signed by Lorrie Tolbert 05-25-2025 7:[address] 05/25/25 17:47 EXAMINATION: Chest CT with CLINICAL HISTORY: Fall down 2 steps COMPARISON: Chest radiograph today TECHNIQUE: Contiguous axial images were obtained through the chest with the use of intravenous contrast. Sagittal and coronal reformations are supplied. FINDINGS: Chest is well-expanded. No pneumothorax, pulmonary contusion or pleural effusion. No bronchiectasis or mucous plugging. Trachea and mainstem bronchi are patent. Thyroid size is normal. Trachea and mainstem bronchi patent. Heart size within normal limits. No pericardial effusion. No adenopathy in the chest. Mild atherosclerotic disease of the coronary arteries. Fatty infiltration of the liver noted. Low-attenuation lesions in the liver may represent cysts. Mild osseous demineralization. No rib fracture IMPRESSION: No CT evidence of an acute or traumatic abnormality in the chest. Electronically signed by Lorrie Tolbert 05-25-2025 7:[address] 05/25/25 17:47 EXAMINATION: CT sinus without. PROCEDURE: Contiguous axial images were obtained through the paranasal sinuses without the use of intravenous contrast in bone windows. Sagittal and coronal reformations are supplied. COMPARISON: None INDICATION: Fall down 2 steps left eye pain FINDINGS: Mild osseous demineralization noted. No displaced fracture or dislocation. Postsurgical change of the sinuses with moderate mucosal moderate mucosal thickening of the maxillary sinuses noted. Remainder of paranasal sinuses and mastoid air cells well-pneumatized. The globes are bilaterally symmetric chronic appearing lucencies in the styloid processes. Postsurgical change of the nasal turbinates. Chronic appearing nasal bone fracture/lucency noted, image 40, series 901. No soft tissue swelling. Mild left periorbital inflammatory change. IMPRESSION: 1. Mild left periorbital soft tissue swelling representing trauma 2. Thickening of the maxillary sinuses compatible with chronic sinusitis. Electronically signed by Lorrie Tolbert 05-25-2025 7:[address] 05/25/25 17:47 EXAMINATION: Head CT without CLINICAL HISTORY: Fall last night fell 2 steps PRIORS: 02/24/2025 TECHNIQUE: Contiguous axial images were obtained through the head without the use of intravenous contrast. Sagittal and coronal reformations are supplied. FINDINGS: Appropriate parenchymal volume is noted. Scattered heterogeneous opacity present in the deep white matter likely representing small vessel occlusive disease. Jalloh-white differentiation is preserved. No edema or midline shift. No intra-axial or extra-axial hemorrhage. Ventricles are normal in size and configuration. Brainstem and cerebellum have a normal appearance. Calvarium unremarkable. Paranasal sinuses and mastoid air cells are well-pneumatized. Globes are intact. No retrobulbar abnormality. IMPRESSION: No CT evidence of an acute intracranial abnormality. If clinically appropriate, brain MRI could be obtained as appropriate. Electronically signed by Lorrie Tolbert 05-25-2025 7:[address] 05/25/25 20:44 Exam(s): CT LEFT FOOT Without Contrast EXAM: CT Left Lower Extremity Without Intravenous Contrast, Foot CLINICAL HISTORY: Reason for exam: pain. TECHNIQUE: Axial computed tomography images of the left foot without intravenous contrast. CTDI is 24.91 mGy and DLP is 638.21 mGy-cm. Automated exposure control was utilized for the study. A dose lowering technique was utilized adhering to the principles of ALARA. COMPARISON: No relevant prior studies available. FINDINGS: Bones/joints: Unremarkable. No acute fracture. No dislocation. Soft tissues: Subtle soft tissue swelling about the dorsum of the foot. No radiopaque foreign body. IMPRESSION: Normal left foot CT. Subtle soft tissue swelling about the dorsum of the foot may representing mild cellulitis. Electronically signed by: Jim Decker MD 05/26/25 00:54 AM Medications Administered Home Medications Medication Instructions Recorded Confirmed Last Taken amlodipine 2.5 mg tablet 5 mg PO QAM 05/25/25 05/25/25 Unknown cyanocobalamin (vitamin B-12) 1,000 mcg IM MONTHLY 05/25/25 05/25/25 Unknown 1,000 mcg/mL injection solution folic acid 1 mg tablet 1 mg PO DAILY 05/25/25 05/25/25 Unknown losartan 100 mg tablet 100 mg PO QAM 05/25/25 05/25/25 Unknown rosuvastatin 5 mg tablet 5 mg PO QAM 05/25/25 05/25/25 Unknown sertraline 50 mg tablet 75 mg PO DAILY 05/25/25 05/25/25 Unknown Active Medications Generic Name Dose Route Start Last Admin Trade Name Saul PRN Reason Stop Dose Admin Amlodipine Besylate 5 mg 05/26/25 09:00 05/26/25 08:35 Amlodipine Besylate 5 Mg Tab PO 06/25/25 08:59 5 mg QAM JESSY Administration Folic Acid 1 mg 05/26/25 09:00 05/26/25 08:35 Folic Acid 1 Mg Tab PO 06/25/25 08:59 1 mg DAILY JESSY Administration Promethazine HCl 6.25 mg in 50.25 mls @ 201 mls/hr 05/25/25 20:44 05/26/25 09:45 Phenergan IV 06/24/25 20:43 Infused Q6H PRN Infusion Nausea And Vomiting Losartan Potassium 100 mg 05/26/25 09:00 05/26/25 08:35 Losartan Potassium 50 Mg Tab PO 06/25/25 08:59 100 mg QAM JESSY Administration Morphine Sulfate 4 mg 05/25/25 20:44 05/26/25 09:55 Morphine Sulfate 4 Mg/Ml 1 Ml Carp\\Vial IV 06/08/25 20:43 4 mg Q4H PRN Administration Pain Oxycodone HCl 5 mg 05/25/25 20:44 05/26/25 00:17 Oxycodone Hcl Ir 5 Mg Tab (Immediate Release) PO 06/08/25 20:43 5 mg Q4H PRN Administration Pain Sertraline HCl 75 mg 05/26/25 09:00 05/26/25 08:34 Sertraline Hcl 50 Mg Tablet PO 06/25/25 08:59 75 mg DAILY JESSY Administration
--- NOTE | 2025-05-26 13:43 | Hospitalist Progress Note ---
Date of Service May 26, 2025 Assessment & Plan (1) Cerebral concussion: Plan: Cerebral concussion Prior history of concussion injury when patient was residing in [place] Transient left eye blurry vision--resolved Secondary to mechanical fall --CT head:No CT evidence of an acute intracranial abnormality. --Face CT: Mild left periorbital soft tissue swelling representing trauma. Thickening of the maxillary sinuses compatible with chronic sinusitis. --Neck CT: Lordotic straightening with advanced degenerative change throughout the lumbar spine and no acute fracture or dislocation. Monitor for any arrhythmias Neurochecks Neurology consulted Left foot pain ? Occult fracture Ambulatory dysfunction --Left Foot X ray:Moderate soft tissue swelling of the foot with degenerative change of the great toe and no plain film evidence of an acute osseous abnormality. Follow-up radiograph of the foot could be considered if no radiographic occult fracture is of clinical concern, given the degree of soft tissue swelling. 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 ADHD, stable off maintenance medications DVT Px: SCDs for now Re: Recent head trauma Code Status Full code Disposition PT/OT prior to discharge Admission and Anticipated Discharge Date Admission Date: May 25, 2025 Subjective Patient is seen and examined at bedside Reports having left foot pain and some discomfort periorbitally and at the nape of neck on right side Blurry vision resolved Denies any focal weakness, numbness Also denies any chest pain, dyspnea, nausea, vomiting, abdominal pain Review of Systems Review of Systems: All systems reviewed & are unremarkable except as noted in Subjective Physical Exam Physical Exam: Physical Exam: Vitals signs as noted above General Appearance:Moderately built and nourished, no apparent distress Head: normocephalic, +traumatic, periorbital ecchymosis, abrasion Eyes: normal inspection, EOMI Neck: supple, Trachea midline Respiratory/Chest: Normal breath sounds, CTA, No accessory muscle use Cardiovascular: S1, S2, No murmur Abdomen/GI:Soft, Non tender, Bowel sounds present Extremities/Musculoskeletal:normal inspection, left foot ecchymosis, swelling, tender Neurologic/Psych:AAOX3, grossly no focal neurological deficits Skin: normal color, warm Results & Data Results & Data Vital Signs (Past 12 Hours) Vital Signs Temp Pulse Pulse Pulse Resp BP Pulse Ox 05/26/25 11:17 36.7 C 81 18 147/85 H 95 05/26/25 08:07 36.9 C 80 20 131/80 97 05/26/25 08:00 05/26/25 07:40 75 05/26/25 03:07 36.8 C 75 18 129/77 93 O2 Del Method 05/26/25 11:17 Room Air 05/26/25 08:07 Room Air 05/26/25 08:00 Room Air 05/26/25 07:40 05/26/25 03:07 Room Air Laboratory Results Short CBC 05/25/25 05/26/25 Range/Units 17:42 07:06 WBC 6.05 4.16 L (4.8-10.8) K/ul Hgb 12.1 9.7 L (12.0-16.0) g/dL Hct 33.0 L 27.0 L (37.0-47.0) % Plt Count 253 191 (130-400) K/uL BMP 05/25/25 05/26/25 17:42 07:06 Sodium 134 L 136 Potassium 3.8 3.7 Chloride 93 L 98 Carbon Dioxide 17 L 25 BUN 9 7 Creatinine 0.68 0.72 Glucose 76 84 Calcium 9.4 8.3 L Cardiac Enzymes 05/25/25 05/26/25 Range/Units 17:42 07:06 Total Creatine Kinase 237 H 172 (26-192) U/L Liver Function 05/25/25 05/26/25 Range/Units 17:42 07:06 Total Bilirubin 1.1 H 0.8 (0.2-1.0) mg/dl AST 44 H 24 (13-39) U/L ALT 32 20 (7-52) U/L Alkaline Phosphatase 72 57 (34-104) U/L Albumin 4.8 3.8 (3.4-5.0) gm/dl Urine 05/25/25 Range/Units 20:15 Urine Color Yellow Urine Appearance Clear (Clear) Urine pH 6.0 (4.5-7.5) Ur Specific [place] 1.026 (1.000-1.030) Urine Protein Negative (Negative) Urine Glucose (UA) Negative (Negative)
[2025-05-26] MEDS: GADOBUTROL 65ML VIAL IV ONE (20:33)
--- NOTE | 2025-05-26 21:15 | Magnetic Resonance Report ---
Exam(s): MRI LEFT FOOT Without Contrast EXAM: MR Left Lower Extremity Without Intravenous Contrast, Foot CLINICAL HISTORY: Reason for exam: Left foot Pain. TECHNIQUE: Multiplanar magnetic resonance images of the left foot without intravenous contrast. COMPARISON: X-ray 05/25/2025. FINDINGS: LIGAMENTS: Medial collateral: Unremarkable. Lateral collateral: Unremarkable. Lisfranc: Unremarkable. TENDONS: Flexor: Unremarkable. Extensor: Unremarkable. Peroneal: Unremarkable. Tibialis anterior: Unremarkable. Tibialis posterior: Unremarkable. Muscles: Unremarkable. Fluid: No joint effusion.. Sinus tarsi: Unremarkable as visualized. Tarsal tunnel: Unremarkable. Plantar fascia: Unremarkable. Cartilage: Unremarkable. Bones/joints: Severe degenerative changes at the 1st MTP joint. There is a dorsal soft tissue marker over the 1st TMT joint. Joint space narrowing and mild subchondral degenerative related signal changes at the TMT joints. No joint effusion. No acute fracture. No osteomyelitis. Soft tissues: Subcutaneous soft tissue edema most pronounced dorsally. IMPRESSION: 1. Severe degenerative changes at the first MTP joint. 2. Subcutaneous soft tissue edema, most pronounced dorsally. Electronically signed by: Aubrey Bush MD 05/26/25 21:14 PM
--- NOTE | 2025-05-26 22:06 | Electrocardiogram Report ---
Test Reason : Blood Pressure : */* mmHG Vent. Rate : 81 BPM Atrial Rate : 81 BPM P-R Int : 184 ms QRS Dur : 80 ms QT Int : 416 ms P-R-T Axes : 52 45 79 degrees QTcB Int : 483 ms Normal sinus rhythm Incomplete right bundle branch block Prolonged QT When compared with ECG of 10-Nov-2020 06:18, No significant change was found Confirmed by Jose Waters ([id number]) on 05/26/2025 10:06:01 PM Referred By: REFERRED SELF Confirmed By: Jose Waters
--- NOTE | 2025-05-26 22:23 | Magnetic Resonance Report ---
Exam(s): MRI HEAD W/WO Contrast EXAM: MR Head Without and With Intravenous Contrast CLINICAL HISTORY: Reason for exam: Cerebral concussion. TECHNIQUE: Magnetic resonance images of the head/brain without and with intravenous contrast in multiple planes. COMPARISON: Head CT 05/25/2025 FINDINGS: Brain: No restricted diffusion. No intracranial hemorrhage. No mass effect or cerebral edema. Global parenchymal atrophy. Periventricular chronic microvascular ischemic changes. Ventricles: Unremarkable. No ventriculomegaly. Bones/joints: Unremarkable. No acute fracture. Sinuses: Unremarkable as visualized. No acute sinusitis. Mastoid air cells: Unremarkable as visualized. No mastoid effusion. Orbits: Unremarkable as visualized. IMPRESSION: 1. No acute intracranial abnormality. 2. Global parenchymal atrophy with chronic microvascular ischemic changes. Electronically signed by: Aubrey Bush MD 05/26/25 22:22 PM
[2025-05-27 07:51] LABS: Hematocrit (blood only) 27.7 % (37.0-47.0); Hemoglobin 9.9 g/dL (12.0-16.0); Mean Corpuscular Hemoglobin 33.8 pg (25.0-34.0); Mean Corpuscular Volume 94.5 fL (80.0-100.0); Platelet Count 183 K/uL (130-400); RDW Standard Deviation 45.5 fL (36.4-46.3); Red Blood Count 2.93 M/uL (4.20-5.40); White Blood Count 3.88 K/ul (4.8-10.8)
[2025-05-27 08:10] LABS: Anion Gap 11.0 (3-11); Blood Urea Nitrogen 5.0 mg/dl (6-23); Calcium 8.4 mg/dl (8.6-10.3); Carbon Dioxide 27.0 mmol/L (21-32); Chloride 97.0 mmol/L (98-107); Creatinine Clr Calc Pharmacy 100.1 ml/min; Glucose 117.0 mg/dl (70-99(Fasting)); Magnesium 1.0 mg/dl (1.7-2.4); Potassium 3.6 mmol/L (3.5-5.1); Sodium 135.0 mmol/L (136-145)
--- NOTE | 2025-05-27 13:31 | Hospitalist Progress Note ---
Date of Service May 27, 2025 Assessment & Plan (1) Cerebral concussion: Plan: Cerebral concussion Prior history of concussion injury when patient was residing in [place] Transient left eye blurry vision--resolved Secondary to mechanical fall --CT head:No CT evidence of an acute intracranial abnormality. --Face CT: Mild left periorbital soft tissue swelling representing trauma. Thickening of the maxillary sinuses compatible with chronic sinusitis. --Neck CT: Lordotic straightening with advanced degenerative change throughout the lumbar spine and no acute fracture or dislocation. --MRI Brain:No acute intracranial abnormality.Global parenchymal atrophy with chronic microvascular ischemic changes. Monitor for any arrhythmias Neurochecks Appreciate neurology input--if MRI brain negative, no further workup needed Patient to be discharged to rehab facility as able Patient feels not ready for discharge today Left foot pain ? Occult fracture Ambulatory dysfunction --Left Foot X ray:Moderate soft tissue swelling of the foot with degenerative change of the great toe and no plain film evidence of an acute osseous abnormality. Follow-up radiograph of the foot could be considered if no radiographic occult fracture is of clinical concern, given the degree of soft tissue swelling. --Left Foot MRI: Severe degenerative changes at the first MTP joint. Subcutaneous soft tissue edema, most pronounced dorsally. 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 ADHD, stable off maintenance medications DVT Px: SCDs for now Re: Recent head trauma Code Status Full code Disposition Rehab as able Case management to help with discharge planning Admission and Anticipated Discharge Date Admission Date: May 27, 2025 Subjective Patient is seen and examined at bedside No new complaints Left foot pain, swelling better Still has some discomfort periorbitally No recurrence of blurry vision Denies any chest pain, dyspnea, nausea, vomiting, abdominal pain Patient agrees to go to rehab but feels not ready to be discharged today Review of Systems Review of Systems: All systems reviewed & are unremarkable except as noted in Subjective Physical Exam Physical Exam: Tertiary Survey: Subjective: [As above] CAGE-AID Screen: [Defer to case management] Objective: Lab Review: [As documented below] Imaging Review: No acute fractures. MRI brain showed chronic microvascular ischemic changes. Left foot MRI showed severe degenerative changes at the first MTP joint, subcutaneous soft tissue edema. Facial CT showed mild left periorbital soft tissue swelling and findings suggestive of chronic sinusitis. CT neck showed lordotic straightening with advanced degenerative change throughout the lumbar spine with no acute fractures. Physical Exam: General:Moderately built and nourished, no apparent distress - Alert: [Yes] - Oriented: [Yes] - GCS 15: [Yes] HEENT:normocephalic, +traumatic, periorbital ecchymosis, abrasion left forehead mild tenderness PERLAA. Normal Visual Acuity. No visual field cuts. No nystagmus. No contact lenses. Normal hearing. No relative afferent pupillary defect. No facial asymmetry. elevation, uvula midline. Midline tongue protrusion. Shoulder shrug with 5/5 st rength bilaterally. Mucous membranes moist. Neck:- Midline mild tenderness on right side at base of skull Cleared C-Spine: Yes Thorax: Pain/Tenderness: None Lacerations/Abrasions: None Swelling/Ecchymosis: None Air/Bony Crepitus: None Cardiopulmonary: Regular Rate and Rhythm. No murmurs, rubs or gallops. Breath sounds CTAB. No wheezes, rales, or rhonchi. Symmetrical Chest Rise Abdomen Pain/Tenderness: None Lacerations/Abrasions: None No abdominal distension Abdominal rigidity/guarding: None Bowel Sounds: Present, normal Pelvis stable Back/Spine Lacerations/Abrasions: None Swelling/Ecchymosis: None Pain/Tenderness: None Extremities: Left foot swelling, ecchymosis, decreased ROM due to pain, tenderness, normal sensation, pulses present RUE: No deformity. No lacerations/abrasions. No swelling/ecchymosis. No pain/tenderness. Full active and passive range of motion. 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 Sensation intact to soft touch without deficit. Radial pulse intact, cap refill in the thumb <2 seconds. Extremity warm and dry. RLE: No deformity. No lacerations/abrasions. No swelling/ecchymosis. No pain/tenderness. Full active and passive range of motion. 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 Sensation intact to soft touch without deficit. Radial pulse intact, cap refill in the thumb <2 seconds. Extremity warm and dry. LUE: No deformity. No lacerations/abrasions. No swelling/ecchymosis. No pain/tenderness. Full active and passive range of motion. Hip flexion/extension, knee flexion/extension, ankle dorsiflexion/plantarflexion with 5/5 strength. Sensation intact to soft touch without deficit. PT pulse intact to palpation, cap refill in the hallux <2 seconds. Extremity warm and dry. Warm and dry. Mental status Adequate for Full Exam: Yes C-Spine Cleared (Radiologically AND Clinically): Yes New Diagnoses Identified:None New Consults Required: Neurology Results & Data Results & Data Vital Signs (Past 12 Hours) Vital Signs Temp Pulse Pulse Resp BP Pulse Ox O2 Del Method 05/27/25 11:08 36.7 C 70 16 151/82 H 96 Room Air 05/27/25 07:49 36.9 C 76 16 138/87 95 Room Air 05/27/25 07:16 79 05/27/25 03:00 36.9 C 80 16 138/82 94 Room Air Laboratory Results Short CBC 05/27/25 Range/Units 06:55 WBC 3.88 L (4.8-10.8) K/ul Hgb 9.9 L (12.0-16.0) g/dL Hct 27.7 L (37.0-47.0) % Plt Count 183 (130-400) K/uL BMP 05/27/25 06:55 Sodium 135 L Potassium 3.6 Chloride 97 L Carbon Dioxide 27 BUN 5 L Creatinine 0.58 L Glucose 117 H Calcium 8.4 L
[2025-05-27] MEDS: MAGNESIUM SULFATE / D5W 1 GM/100 ML BAG IV SCH (14:03)
[2025-05-28 08:15] LABS: Hematocrit (blood only) 28.3 % (37.0-47.0); Hemoglobin 9.7 g/dL (12.0-16.0); Mean Corpuscular Hemoglobin 32.6 pg (25.0-34.0); Mean Corpuscular Volume 95.0 fL (80.0-100.0); Platelet Count 194 K/uL (130-400); RDW Standard Deviation 44.9 fL (36.4-46.3); Red Blood Count 2.98 M/uL (4.20-5.40); White Blood Count 3.31 K/ul (4.8-10.8)
[2025-05-28 08:36] LABS: Anion Gap 8.0 (3-11); Blood Urea Nitrogen 5.0 mg/dl (6-23); Calcium 8.6 mg/dl (8.6-10.3); Carbon Dioxide 30.0 mmol/L (21-32); Chloride 100.0 mmol/L (98-107); Creatinine Clr Calc Pharmacy 96.8 ml/min; Glucose 112.0 mg/dl (70-99(Fasting)); Magnesium 1.5 mg/dl (1.7-2.4); Potassium 3.3 mmol/L (3.5-5.1); Sodium 138.0 mmol/L (136-145)
--- NOTE | 2025-05-28 14:15 | Discharge Summary ---
Date of Service May 28, 2025 Admission HPI Per Admitting Provider History obtained from patient and records. Medical history significant for hypertension, postconcussion syndrome, pineal gland cyst as per records, ADHD, mood disorder. Last ER visit February, for a fall in the setting of alcohol intoxication resulting in left hand bruising. Patient discharged home. Outpatient x-rays eventually showed phalangeal fractures of the left hand. No operative management as per [facility]. Patient missed a step while going up a flight of stairs at her home today. Balance has been off since having COVID few years back as per patient. Last EtOH intake was weeks ago as per patient. Subsequent head trauma resulting in LOC. Patient thinks he may have been just out for a few minutes. Patient woke up with left eye pain and extreme left foot pain. Vision on the left eye little blurry. Denies chest pain, SOB. Patient not able to take BP meds today. Patient brought to ER by EMS. SBP 170s upon arrival at the ER. Medical History as above Surgical History : Breast lesion excision, dental surgery, right wrist reconstructive surgery Family History : Breast cancer, colon cancer, lymphoma, blood clot Personal/Social history : Non-smoker, occasional EtOH intake, retired from [employer] work Admission Exam Per Admitting Provider GENERAL: Comfortable, slightly anxious, no respiratory distress SKIN: Normal color, warm HEENT: Left periorbital ecchymosis, no ptosis, dry buccal mucosa NECK : Supple, no tenderness CHEST : CTA, no tenderness HEART : RRR, no obvious murmurs ABDOMEN: Some distention, nontender EXTREMITIES : Tender left foot swelling, palpable pulses, no other conspicuous deformities noted NEUROLOGIC : Coherent, no EOM entrapment, no facial asymmetry, gait and stance not assessed Principal Diagnosis Cerebral concussion Left foot pain Ambulatory dysfunction Discharge Exam General Appearance:Moderately built and nourished, no apparent distress Head: normocephalic, +traumatic, periorbital ecchymosis, abrasion Eyes: normal inspection, EOMI Neck: supple, Trachea midline Respiratory/Chest: Normal breath sounds, CTA, No accessory muscle use Cardiovascular: S1, S2, No murmur Abdomen/GI:Soft, Non tender, Bowel sounds present Extremities/Musculoskeletal:normal inspection, left foot ecchymosis, swelling, tender Neurologic/Psych:AAOX3, grossly no focal neurological deficits Skin: normal color, warm Discharge Data Allergies Allergy/AdvReac Type Severity Reaction Status Date / Time Penicillins Allergy childhood Unverified 05/25/25 18:59 allergy Consultations 05/25/25 19:38 ED Decision to Admit Stat 05/25/25 22:39 Consult Neurology Routine Ordered Studies 05/25/25 17:47 CT abd pelvis IV con only Stat CT cervical spine wo con Stat CT chest diagnostic w con Stat CT facial bones wo con Stat CT head/brain wo con Stat 05/25/25 20:44 CT foot LT wo con Stat 05/26/25 12:16 MRI Foot [MR foot LT w/o con] Urgent FINDINGS: LIGAMENTS: Medial collateral: Unremarkable. Lateral collateral: Unremarkable. Lisfranc: Unremarkable. TENDONS: Flexor: Unremarkable. Extensor: Unremarkable. Peroneal: Unremarkable. Tibialis anterior: Unremarkable. Tibialis posterior: Unremarkable. Muscles: Unremarkable. Fluid: No joint effusion.. Sinus tarsi: Unremarkable as visualized. Tarsal tunnel: Unremarkable. Plantar fascia: Unremarkable. Cartilage: Unremarkable. Bones/joints: Severe degenerative changes at the 1st MTP joint. There is a dorsal soft tissue marker over the 1st TMT joint. Joint space narrowing and mild subchondral degenerative related signal changes at the TMT joints. No joint effusion. No acute fracture. No osteomyelitis. Soft tissues: Subcutaneous soft tissue edema most pronounced dorsally. IMPRESSION: 1. Severe degenerative changes at the first MTP joint. 2. Subcutaneous soft tissue edema, most pronounced dorsally. 05/26/25 14:19 MRI Brain [MR brain wo/w con] Urgent FINDINGS: Brain: No restricted diffusion. No intracranial hemorrhage. No mass effect or cerebral edema. Global parenchymal atrophy. Periventricular chronic microvascular ischemic changes. Ventricles: Unremarkable. No ventriculomegaly. Bones/joints: Unremarkable. No acute fracture. Sinuses: Unremarkable as visualized. No acute sinusitis. Mastoid air cells: Unremarkable as visualized. No mastoid effusion. Orbits: Unremarkable as visualized. IMPRESSION: 1. No acute intracranial abnormality. 2. Global parenchymal atrophy with chronic microvascular ischemic changes. Hospital Course (1) Cerebral concussion: Cerebral concussion Prior history of concussion injury when patient was residing in [place] Transient left eye blurry vision--resolved Secondary to mechanical fall --CT head:No CT evidence of an acute intracranial abnormality. --Face CT: Mild left periorbital soft tissue swelling representing trauma. Thickening of the maxillary sinuses compatible with chronic sinusitis. --Neck CT: Lordotic straightening with advanced degenerative change throughout the lumbar spine and no acute fracture or dislocation. --MRI Brain:No acute intracranial abnormality.Global parenchymal atrophy with chronic microvascular ischemic changes. Monitor for any arrhythmias Neurochecks Appreciate neurology input--if MRI brain negative, no further workup needed Patient to be discharged to rehab facility Left foot pain ? Occult fracture Ambulatory dysfunction --Left Foot X ray:Moderate soft tissue swelling of the foot with degenerative change of the great toe and no plain film evidence of an acute osseous abnormality. Follow-up radiograph of the foot could be considered if no radiographic occult fracture is of clinical concern, given the degree of soft tissue swelling. --Left Foot MRI: Severe degenerative changes at the first MTP joint. Subcutaneous soft tissue edema, most pronounced dorsally. 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 ADHD, stable off maintenance medications Total Time Total Time Spent Total Time Spent (In Minutes): 40 Discharge Plan Discharge Items Patient Disposition: Transfer Inpatient Rehab Fac Reason For Visit: CONCUSSION Discharge Diagnosis: Cerebral concussion Left foot pain Ambulatory dysfunction Condition on Discharge: Fair Activity: Per Instructions section Non-emergency contact: Primary Care Provider Call non-emergency contact if: you have any medication questions and your symptoms worsen Follow-up/Referrals: Nhi Paz MD [Primary Care Provider] - Diet: Heart Healthy Addtl Attending Provider Instructions: Follow up with primary care physician within 1 week after being discharged from rehab. Pending Studies at Discharge: No Stand-Alone Forms: My [facility] Skilled Items Patient informed of condition?: Yes DNR: No Discharge Level of Care: Acute rehab Communicable Disease: No Discharge Prognosis: Stable Lines: None Urinary Catheter: No Medications and DC Order Prescriptions: New oxycodone 5 mg Tablet 5 mg PO Q4H PRN (Reason: pain) Qty: 10 0RF Continued amlodipine 2.5 mg tablet 5 mg PO QAM cyanocobalamin (vitamin B-12) 1,000 mcg/mL solution 1,000 mcg IM MONTHLY folic acid 1 mg tablet 1 mg PO DAILY losartan 100 mg tablet 100 mg PO QAM sertraline 50 mg tablet 75 mg PO DAILY rosuvastatin 5 mg tablet 5 mg PO QAM Discharge Orders: Discharge Order (Routine); Ordered 05/28/25 Ordered By: Domingo Natarajan Admission Data Admit Date/Time: 05/27/25 12:53 Attending Provider: Domingo Natarajan Admit Provider: Luigi Alexis Primary Care Provider: Nhi Paz Other Providers: Colette Patrick; Ricardo Perez; Colette Adler; Ben Glover; Bird Terry; Cristobal Elliott; Jose Dobson; Beverly Britton; Valentín Singer; Merritt Cline; Connie De La Fuente; Werner Claudio; Emily Olivas; Jose Cortez; Samaria Spencer; Kari Lee; Sonny Paz; Jose J Khan; [facility]; Luigi Alexis
[2025-05-30 13:08] LABS: Hydrocodone Urine NEGATIVE ng/mL (<50); Hydromor Urine NEGATIVE ng/mL (<50); Noroxycodone Urine NEGATIVE ng/mL (<50); Oxymorph Urine NEGATIVE ng/mL (<50)
== END 2025-05-28 16:04 | DRG 90 ==
LOC: ED 17:32 → EDINP 17:32 → 2N 22:39 → SUATTDRO 05-27 12:53